=== PATIENT | female | born 1970 | race Caucasian/White ===

== ENCOUNTER 2017-09-02 21:39 | Emergency (ER) | payer SELFPAY ==
[~2017-09-02] VITALS: Ht 160 cm; Wt 81.6 kg
[2017-09-02 21:49] VITALS: BP 98/59
--- NOTE | 2017-09-02 22:12 | NUR ---
PT TAKEN TO BED 11.
--- NOTE | 2017-09-02 22:15 | NUR ---
46Y F BIB FAMILY C/O FALL X 4 DAYS AGO. PT STATES SHE LANDED ON HER LEFT SHOULDER. PT DENIES ANY LOC/KO. PT STATES SHE FELL BUT GOT UP IMMEDIATELY AND CONTINUED TO WORK. PT ALSO STATES SHE IS HAVING CP, NONRADIATING, SUBSTERNAL. PT DENIES ANY N/V/D/,SOB AT THE MOMENT. PT AAOX4. BREATHING IS UNLABORED AND CLEAR BILAT. PT AMBULTAED TO ER BED WITH STEADY GAIT.
--- NOTE | 2017-09-02 22:27 | NUR ---
Patient being evaluated by Dr. Ron at bedside.
[2017-09-03 00:33] VITALS: BP 121/76
--- NOTE | 2017-09-03 00:33 | NUR ---
Patient discharged with v/s stable. Written and verbal after care instructions given and explained. Patient alert, oriented and verbalized understanding of instructions. Ambulatory with steady gait. All questions addressed prior to discharge. ID band removed. Patient advised to follow up with PMD. Rx of MOTRIN 800MG AND ULTRAM 50MG given. Patient educated on indication of medication including possible reaction and side effects. Opportunity to ask questions provided and answered.
== END 2017-09-03 00:33 | disposition home or self-care (01) ==
LOC: MED 21:39
DX: R07.89 Other chest pain (principal)
CPT/HCPCS: 71010; 93005; 99284; Q0092